=== PATIENT | male | born 1985 | race Caucasian/White ===

== ENCOUNTER 2024-05-18 16:53 | Inpatient (IN) | payer OTHER ==
[~2024-05-18] VITALS: Ht 162.6 cm; Wt 74.1 kg
[2024-05-18] MEDS ORDERED: LISI-892 PO (17:30)
[2024-05-18] MEDS ORDERED: HYDR50CA7 PO (17:30)
[2024-05-18] MEDS ORDERED: CLOZ100T61 PO (17:30)
[2024-05-18] MEDS ORDERED: ATOR20TA PO (17:30)
[2024-05-18] MEDS ORDERED: VENL-67 PO (17:30)
[2024-05-18] MEDS ORDERED: MIRT-89 PO (17:30)
[2024-05-18] MEDS: SODIUM PHOSPHATE,MONO-DIBASIC 133 ML ENEMA PR ONE (17:48)
[2024-05-18 17:50] LABS: BASOPHILS % (AUTO) 0.6 % (0.0-2.0); EOSINOPHILS % (AUTO) 1.6 % (1.0-6.0); HEMATOCRIT 40.6 % (41-53); HEMOGLOBIN 13.5 g/dL (13.5-17.5); LYMPHOCYTES # (AUTO) 3.6 K/uL (1.0-4.8); LYMPHOCYTES % (AUTO) 52.6 % (22.0-44.0); MEAN CORPUSCULAR HGB CONC 33.4 G/dL (31.0-37.0); MEAN CORPUSCULAR VOLUME 84 fL (80-100); MONOCYTES # (AUTO) 0.6 K/uL (0.1-1.0); MONOCYTES % (AUTO) 8.8 % (2.0-9.0); NEUTROPHILS # (AUTO) 2.5 K/uL (1.8-7.7); NEUTROPHILS % (AUTO) 36.4 % (40.0-70.0); PLATELET COUNT (AUTO) 201 K/uL (150-450); RED BLOOD CELL COUNT(AUTO) 4.83 MIL/uL (4.50-5.90); WHITE BLOOD COUNT (AUTO) 6.9 K/uL (4.5-11.0)
[2024-05-18 18:28] LABS: ANION GAP 9 mmol/L (8-16); CALCIUM, TOTAL 8.8 mg/dL (8.8-10.5); CARBON DIOXIDE 28 mmol/L (22-29); CHLORIDE 103 mmol/L (98-107); CREATININE 0.63 mg/dL (0.60-1.30); GLOMERULAR FILTR. RATE CALC > 60 mL/min (>60); GLUCOSE,RANDOM 76 mg/dL (70-110); SODIUM SERUM 140 mmol/L (136-145); UREA NITROGEN, BLOOD 15 mg/dL (7-18)
[2024-05-18 18:29] LABS: LIPASE 21 U/L (16-77)
[2024-05-18] MEDS: IOHEXOL 9 MG/ML 500 ML BOTTLE PO ONE (18:30)
[2024-05-18] MEDS ORDERED: 0.9% SODIUM CHLORIDE 10 ML SYRINGE IVP ONE (18:36)
[2024-05-18] MEDS ORDERED: SODIUM CHLORIDE 0.9% 100 ML ONE (18:36)
[2024-05-18] MEDS ORDERED: IOHEXOL 300 MG/ML 100 ML VIAL ONE (18:36)
[2024-05-18] MEDS: PEG 3350/NA SULF,BICARB,CL/KCL 4000 ML SOLUTION PO ONE (22:48)
[2024-05-18] MEDS ORDERED: MORPHINE SULFATE 2 MG/ML SYRINGE IVP PRN (23:45)
[2024-05-18] MEDS ORDERED: IPRATROPIUM BROMIDE 0.5 MG/2.5 ML NEB SOLUTION NEB PRN (23:45)
[2024-05-18] MEDS ORDERED: MAGNESIUM HYDROXIDE SUSPENSION 30 ML UDCUP PO PRN (23:45)
[2024-05-18] MEDS ORDERED: ALBUTEROL SULFATE 2.5 MG/0.5 ML NEB SOLUTION NEB PRN (23:45)
[2024-05-18] MEDS ORDERED: ONDANSETRON HCL 4 MG/2 ML VIAL IVP PRN (23:45)
[2024-05-19] MEDS: HEPARIN SODIUM,PORCINE 5,000 UNITS/ML VIAL SQ SCH (00:37)
[2024-05-19 01:00] VITALS: BP 130/66; PULSE 55; RESP 18; TEMP 98.3; O2SAT 98
[2024-05-19] MEDS: PANTOPRAZOLE SODIUM 40 MG DR TABLET PO SCH (08:27)
[2024-05-19 09:31] VITALS: BP 112/51; PULSE 63; RESP 19; TEMP 97.7; O2SAT 99
[2024-05-19] MEDS: BISACODYL 10 MG RECTAL RECTAL SUPPOSITORY PR PRN (15:49)
[2024-05-19 16:03] VITALS: BP 111/59; PULSE 56; RESP 18; TEMP 97.6; O2SAT 100
[2024-05-19 19:39] VITALS: BP 105/53; PULSE 53; RESP 18; TEMP 98.4; O2SAT 98
[2024-05-19] MEDS: LACTULOSE 20 GM/30 ML SOLUTION UDCUP PO PRN (19:46)
[2024-05-19] MEDS: ACETAMINOPHEN 325 MG TABLET PO PRN (20:30)
[2024-05-19] MEDS: ZOLPIDEM TARTRATE 5 MG TABLET PO PRN (23:52)
[2024-05-20 05:11] VITALS: BP 105/64; PULSE 57; RESP 18; TEMP 98.4; O2SAT 98
[2024-05-20] MEDS: HYDROCODONE/ACETAMINOPHEN 5-325 MG TABLET PO PRN (08:05)
[2024-05-20 08:09] VITALS: BP 105/62; PULSE 57; RESP 18; TEMP 98.3; O2SAT 97
[2024-05-20] MEDS ORDERED: ACET-2247 PO (09:47)
[2024-05-20] MEDS ORDERED: LACT10SO10 PO (09:48)
[2024-05-20] MEDS ORDERED: MAGN-169 PO (09:49)
== END 2024-05-20 13:53 | DRG 392 ==
LOC: EMS 16:53 → EDH 22:59 → 6S 05-19 00:57
PROVIDERS: ADMIT Hospitalist; ATTEND Hospitalist
DX: K59.00 Constipation, unspecified (principal); I10 Essential (primary) hypertension; E78.5 Hyperlipidemia, unspecified; E11.9 Type 2 diabetes mellitus without complications; F20.9 Schizophrenia, unspecified; F11.10 Opioid abuse, uncomplicated; F15.10 Other stimulant abuse, uncomplicated
CPT/HCPCS: 74177; 80048; 83690; 85025; 93005; 99285; G0378; J1644; J7050; Q9967

== ENCOUNTER 2024-08-07 16:37 | Inpatient (IN) | payer OTHER ==
[~2024-08-07] VITALS: Ht 167.6 cm; Wt 70.9 kg
[~2024-08-07 16:37] MED LIST: ACET-2247 PO; CLOZ100T61 PO; LACT10SO10 PO; MAGN-169 PO; MIRT-89 PO; VENL-67 PO
[2024-08-07] MEDS ORDERED: LACT10SO85 PO (16:59)
[2024-08-07 17:18] LABS: BASOPHILS % (AUTO) 0.7 % (0.0-2.0); EOSINOPHILS % (AUTO) 0.5 % (1.0-6.0); HEMATOCRIT 43.2 % (41-53); HEMOGLOBIN 14.8 g/dL (13.5-17.5); LYMPHOCYTES # (AUTO) 2.3 K/uL (1.0-4.8); LYMPHOCYTES % (AUTO) 28.4 % (22.0-44.0); MEAN CORPUSCULAR HEMOGLOBIN 28.2 pg (26.0-34.0); MEAN CORPUSCULAR HGB CONC 34.2 G/dL (31.0-37.0); MEAN CORPUSCULAR VOLUME 83 fL (80-100); MONOCYTES # (AUTO) 0.5 K/uL (0.1-1.0); MONOCYTES % (AUTO) 5.7 % (2.0-9.0); NEUTROPHILS # (AUTO) 5.1 K/uL (1.8-7.7); NEUTROPHILS % (AUTO) 64.7 % (40.0-70.0); PLATELET COUNT (AUTO) 208 K/uL (150-450); RED BLOOD CELL COUNT(AUTO) 5.24 MIL/uL (4.50-5.90); RED CELL DISTRIBUTION WIDTH 13.5 % (11.5-14.5); WHITE BLOOD COUNT (AUTO) 7.9 K/uL (4.5-11.0)
[2024-08-07 17:28] LABS: ANION GAP 11 mmol/L (8-16); CALCIUM, TOTAL 9.9 mg/dL (8.8-10.5); CARBON DIOXIDE 29 mmol/L (22-29); CHLORIDE 99 mmol/L (98-107); CREATININE 0.64 mg/dL (0.60-1.30); GLOMERULAR FILTR. RATE CALC > 60 mL/min (>60); GLUCOSE,RANDOM 95 mg/dL (70-110); LIPASE 19 U/L (16-77); POTASSIUM 3.5 mmol/L (3.5-5.1); SODIUM SERUM 139 mmol/L (136-145); UREA NITROGEN, BLOOD 25 mg/dL (7-18)
[2024-08-07] MEDS ORDERED: MIRT-149 PO (17:30)
[2024-08-07] MEDS ORDERED: VENL-68 PO (17:30)
[2024-08-07] MEDS ORDERED: LISI-892 PO (17:30)
[2024-08-07] MEDS ORDERED: HALO1TAB19 PO (17:30)
[2024-08-07] MEDS ORDERED: HYDR-4584 PO (17:30)
[2024-08-07] MEDS ORDERED: ATOR20TA PO (17:30)
[2024-08-07] MEDS ORDERED: POLY17PO47 PO (17:30)
[2024-08-07] MEDS ORDERED: BUPR100S SQ (17:30)
[2024-08-07 17:42] LABS: ALBUMIN 4.4 g/dL (3.4-5.0); BILIRUBIN,DIRECT 0.1 mg/dL (0.00-0.20); BILIRUBIN,TOTAL 0.4 mg/dL (0.1-1.0); TOTAL PROTEIN, SERUM 8.5 g/dL (6.4-8.2)
[2024-08-07] MEDS: SODIUM CHLORIDE 0.9% 1,000 ML IV ONE ×2 (18:34→23:25)
[2024-08-07] MEDS: ONDANSETRON HCL 4 MG/2 ML VIAL IVP ONE (18:47)
[2024-08-07] MEDS: FAMOTIDINE 20 MG/2 ML VIAL IVP ONE (18:47)
[2024-08-07] MEDS: KETOROLAC TROMETHAMINE 30 MG/ML VIAL IVP ONE (18:47)
[2024-08-07] MEDS ORDERED: SODIUM CHLORIDE 0.9% 100 ML ONE (19:07)
[2024-08-07] MEDS ORDERED: IOHEXOL 350 MG/ML 100 ML VIAL ONE (19:07)
[2024-08-07] MEDS: DOCUSATE SODIUM 100 MG CAPSULE PO ONE (21:37)
[2024-08-07] MEDS ORDERED: ACETAMINOPHEN 325 MG TABLET PO PRN (22:15)
[2024-08-07] MEDS ORDERED: BISACODYL 10 MG RECTAL RECTAL SUPPOSITORY PR PRN (22:15)
[2024-08-07] MEDS ORDERED: ZOLPIDEM TARTRATE 5 MG TABLET PO PRN (22:15)
[2024-08-07] MEDS ORDERED: ONDANSETRON HCL 4 MG/2 ML VIAL IVP PRN (22:15)
[2024-08-07] MEDS ORDERED: IPRATROPIUM BROMIDE 0.5 MG/2.5 ML NEB SOLUTION NEB PRN (22:15)
[2024-08-07] MEDS ORDERED: MAGNESIUM HYDROXIDE SUSPENSION 30 ML UDCUP PO PRN (22:15)
[2024-08-07] MEDS ORDERED: ALBUTEROL SULFATE 2.5 MG/0.5 ML NEB SOLUTION NEB PRN (22:15)
[2024-08-08 00:01] VITALS: BP 126/74; PULSE 62; RESP 19; TEMP 98.9; O2SAT 99
[2024-08-08] MEDS: HEPARIN SODIUM,PORCINE 5,000 UNITS/ML VIAL SQ SCH (00:20)
[2024-08-08 05:08] VITALS: BP 133/76; PULSE 62; RESP 19; TEMP 98.2; O2SAT 99
[2024-08-08 07:50] VITALS: BP 108/70; PULSE 55; RESP 18; TEMP 97.7; O2SAT 100
[2024-08-08] MEDS: LISINOPRIL 5 MG TABLET PO SCH (08:48)
[2024-08-08] MEDS: PANTOPRAZOLE SODIUM 40 MG DR TABLET PO SCH (08:49)
[2024-08-08] MEDS: LACTULOSE 20 GM/30 ML SOLUTION UDCUP PO PRN (08:51)
[2024-08-08] MEDS: HydrOXYzine HCL 50 MG TABLET PO SCH (09:00)
[2024-08-08] MEDS: POLYETHYLENE GLYCOL 3350 17 GM PACKET PO SCH (11:42)
[2024-08-08] MEDS: VENLAFAXINE HCL 150 MG ER CAPSULE PO SCH (11:44)
[2024-08-08 19:54] VITALS: BP 104/64; PULSE 61; RESP 18; TEMP 98.2; O2SAT 98
[2024-08-08] MEDS: HALOPERIDOL 1 MG TABLET PO SCH (20:51)
[2024-08-08] MEDS: CloZAPine 100 MG TABLET PO SCH (20:51)
[2024-08-08] MEDS: MIRTAZAPINE 15 MG TABLET PO SCH (20:52)
[2024-08-08] MEDS: ATORVASTATIN CALCIUM 20 MG TABLET PO SCH (20:52)
[2024-08-09 04:38] VITALS: BP 118/71; PULSE 92; RESP 18; TEMP 97.8; O2SAT 94
[2024-08-09 09:07] VITALS: BP 122/78; PULSE 95; RESP 18; TEMP 97.8; O2SAT 96
[2024-08-09 20:16] VITALS: BP 119/68; PULSE 87; RESP 18; TEMP 98.7; O2SAT 96
[2024-08-10 04:59] VITALS: BP 113/66; PULSE 83; RESP 18; TEMP 98.6; O2SAT 95
[2024-08-10 08:39] VITALS: BP 119/72; PULSE 85; RESP 20; TEMP 99; O2SAT 96
[2024-08-10] MEDS: MAGNESIUM CITRATE [LEMON] 300 ML ORAL SOLUTION PO ONE (16:54)
[2024-08-10 19:45] VITALS: BP 110/60; PULSE 88; RESP 18; TEMP 98.4; O2SAT 96
[2024-08-11 05:05] VITALS: BP 104/68; PULSE 69; RESP 18; TEMP 98.1; O2SAT 96
[2024-08-11 08:50] VITALS: BP 114/71; PULSE 75; RESP 18; TEMP 98; O2SAT 94
[2024-08-11 16:46] LABS: BASOPHILS % (AUTO) 0.7 % (0.0-2.0); EOSINOPHILS % (AUTO) 8.8 % (1.0-6.0); HEMATOCRIT 38.7 % (41-53); HEMOGLOBIN 13.3 g/dL (13.5-17.5); LYMPHOCYTES # (AUTO) 1.8 K/uL (1.0-4.8); MEAN CORPUSCULAR HEMOGLOBIN 28.1 pg (26.0-34.0); MEAN CORPUSCULAR HGB CONC 34.2 G/dL (31.0-37.0); MEAN CORPUSCULAR VOLUME 82 fL (80-100); MONOCYTES # (AUTO) 0.4 K/uL (0.1-1.0); MONOCYTES % (AUTO) 9.1 % (2.0-9.0); NEUTROPHILS % (AUTO) 43.4 % (40.0-70.0); PLATELET COUNT (AUTO) 165 K/uL (150-450); RED BLOOD CELL COUNT(AUTO) 4.71 MIL/uL (4.50-5.90); RED CELL DISTRIBUTION WIDTH 13.6 % (11.5-14.5); WHITE BLOOD COUNT (AUTO) 4.6 K/uL (4.5-11.0)
[2024-08-11 16:49] LABS: ANION GAP 7 mmol/L (8-16); CARBON DIOXIDE 30 mmol/L (22-29); CHLORIDE 104 mmol/L (98-107); CREATININE 0.58 mg/dL (0.60-1.30); GLOMERULAR FILTR. RATE CALC > 60 mL/min (>60); GLUCOSE,RANDOM 114 mg/dL (70-110); POTASSIUM 3.8 mmol/L (3.5-5.1); SODIUM SERUM 141 mmol/L (136-145); UREA NITROGEN, BLOOD 15 mg/dL (7-18)
[2024-08-11 16:55] LABS: ALANINE AMINOTRANSFERASE 53 U/L (12-78); ALBUMIN 3.1 g/dL (3.4-5.0); ALKALINE PHOSPHATASE 116 U/L (46-116); ASPARTATE AMINOTRANSFERASE 44 U/L (15-37); BILIRUBIN,TOTAL 0.2 mg/dL (0.1-1.0); TOTAL PROTEIN, SERUM 7.1 g/dL (6.4-8.2)
[2024-08-11] MEDS ORDERED: PANT-31 PO (16:59)
[2024-08-11] MEDS ORDERED: PANTOPRAZOLE SODIUM 40 MG DR TABLET PO SCH (21:00)
== END 2024-08-11 20:33 | DRG 392 ==
LOC: EMS 16:39 → EDH 21:50 → 6S 23:48
PROVIDERS: ADMIT Hospitalist; ATTEND Hospitalist
PROC: GZ56ZZZ Individual Psychotherapy, Supportive (ICD-10-PCS; principal; 2024-08-11)
DX: K59.00 Constipation, unspecified (principal); R11.2 Nausea with vomiting, unspecified; I10 Essential (primary) hypertension; B19.20 Unspecified viral hepatitis C without hepatic coma; F25.0 Schizoaffective disorder, bipolar type; E11.9 Type 2 diabetes mellitus without complications; E78.00 Pure hypercholesterolemia, unspecified
CPT/HCPCS: 74177; 80048; 80053; 80076; 83690; 83735; 85025; 99285; J1644; J1885; J2405; J3490; J7030; J7050